=== PATIENT | female | born 1950 ===

== ENCOUNTER → 2023-10-11 | Outpatient (REF) | payer MEDICARE, OTHER ==
[2023-10-11 16:09] LABS: CREATININE, URINE 37.5 MG/DL
[2023-10-11 16:10] LABS: MALB URINE SIEMENS < 3.0 MG/L
== END ==
LOC: M LAB REF 12:57
PROVIDERS: ATTEND Nurse Practitioner Family
DX: E11.65 Type 2 diabetes mellitus with hyperglycemia (principal)